=== PATIENT | female | born 1940 | race Caucasian/White ===

== ENCOUNTER 2020-01-15 13:30 | Inpatient (IN) | payer MEDICARE, OTHER ==
[~2020-01-15] VITALS: Ht 154.9 cm; Wt 59.1 kg
[~2020-01-15 13:30] MED LIST: SIMV20TA18 PO
--- NOTE | 2020-01-15 14:19 | PHYS DOC ---
Past Medical History Past Medical History: Arthritis, High Cholesterol, Other Additional Past Medical Histor: BOWEL OBSTRUCTION X 3 Past Surgical History: Cholecystectomy, Hysterectomy, Knee Replacement, Other Additional Past Surgical Histo: D&C'S,BOWEL RESECTION X3 Smoking Status: Current Every Day Smoker Alcohol Use: Occasionally Drug Use: None General Adult EDM: Chief Complaint: OTHER COMPLAINTS HPI: HPI: Patient is a 79 year old female who presents with her with a chief complaint of left upper and lower extremity numbness that lasted about 15 minutes. Patient states that she was driving to the grocery store when her left upper extremity and lower extremity became numb. Patient states that the symptoms started around 12:45 PM and resolved around 1 PM. Patient denies headache, chest pain, shortness of breath, fever, chills, nausea, vomiting. Patient states that currently she does not have any symptoms. Patient denies being on blood thinners. Review of Systems: Review of Systems: Constitutional: Denies fever or chills. [] Eyes: Denies change in visual acuity. [] HENT: Denies nasal congestion or sore throat. [] Respiratory: Denies cough or shortness of breath. [] Cardiovascular: Denies chest pain or edema. [] GI: Denies abdominal pain, nausea, vomiting, bloody stools or diarrhea. [] : Denies dysuria. [] Neurologic: Complains of numbness in her left upper and lower extremities Heart Score: Risk Factors: Risk Factors: DM, Current or recent (<one month) smoker, HTN, HLP, family history of CAD, obesity. Risk Scores: Score 0 - 3: 2.5% MACE over next 6 weeks - Discharge Home Score 4 - 6: 20.3% MACE over next 6 weeks - Admit for Clinical Observation Score 7 - 10: 72.7% MACE over next 6 weeks - Early Invasive Strategies Allergies: Allergies: Allergies Coded Allergies Type Severity Reaction Last Updated Verified Sulfa (Sulfonamide Antibiotics) Allergy Intermediate 03/06/15 No alendronate sodium Allergy Intermediate UNKNOWN 01/15/20 Yes aspirin Allergy Intermediate 03/06/15 No codeine Allergy Intermediate 03/06/15 No meperidine Allergy Intermediate 03/06/15 No morphine Allergy Intermediate 03/06/15 No penicillin Allergy Intermediate 03/06/15 No Physical Exam: PE: Constitutional: Well developed, well nourished, no acute distress, non-toxic appearance. [] HENT: Normocephalic, atraumatic, hearing aids in both ears Eyes: EOMI Neck: Normal range of motion, Supple Cardiovascular:Heart rate regular rhythm Lungs & Thorax: Bilateral breath sounds clear to auscultation [] Abdomen: Bowel sounds normal, soft, no tenderness Extremities: No tenderness, ROM intact Neurologic: Alert and oriented X 3 Current Patient Data: Labs: Laboratory Tests Test 01/15/20 13:45 Glucose (Fingerstick) 81 mg/dL (70-99) Vital Signs: Vital Signs Date Time Temp Pulse Resp B/P (MAP) Pulse Ox O2 Delivery O2 Flow Rate FiO2 01/15/20 13:45 99.0 95 18 144/66 (92) 98 Room Air 99.0 EKG: EKG: EKG interpretation: 14: 28 on 01/15/2020 HR: 87 Sinus rhythm Regular intervals Normal axis Nonspecific ST changes No STEMI Radiology/Procedures: Radiology/Procedures: [] Impression: CT HEAD IMPRESSION: No acute intracranial findings CXR IMPRESSION: 1. New right upper lobe nodular opacity. CT of the chest with contrast is recommended if the diagnosis remains unclear. Course & Med Decision Making: Course & Med Decision Making Pertinent Labs and Imaging studies reviewed. (See chart for details) Ordered labs, UA, chest x-ray, EKG, troponin, CT head Patient's initial presentation NIH score was 0. CT does not show any acute disease. Chest x-ray does not show any acute disease. Labs are within normal limits. EKG does not show any acute changes. Discussed results and plan of care with patient and family. Patient will be admitted for TIA and further work-up. Discussed case with Dr. Sorenson who accepts admission. Shweta Disclaimer: Shweta Disclaimer: This electronic medical record was generated, in whole or in part, using a voice recognition dictation system. Departure Departure Impression: Primary Impression: TIA (transient ischemic attack) Disposition: 09 ADMITTED INPATIENT Admitting Physician: ALMA Condition: STABLE Referrals: UNKNOWN PCP NAME (PCP) Justicifation of Admission Dx: Justifications for Admission: Justification of Admission Dx: Yes Comments: MENDOZA PITTS DO Jan 15, 2020 14:19
[2020-01-15 14:24] LABS: BASO % 1 % (0-3); EOS # 0.3 x10^3/uL (0.0-0.7); EOS % 3 % (0-3); HEMOGLOBIN 13.8 g/dL (12.0-15.5); LYMPH # 2.2 x10^3/uL (1.0-4.8); LYMPH % 26 % (24-48); MEAN CORPUSCULAR HEMOGLOBIN 33 pg (25-35); MEAN CORPUSCULAR HGB CONC 34 g/dL (31-37); MEAN CORPUSCULAR VOLUME 97 fL (79-100); MONO # 0.8 x10^3/uL (0.0-1.1); MONO % 9 % (0-9); NEUT # 5.3 x10^3/uL (1.8-7.7); NEUT % 62 % (31-73); PLATELET COUNT 202 x10^3/uL (140-400); RED BLOOD COUNT 4.24 x10^6/uL (3.50-5.40); RED CELL DISTRIBUTION WIDTH 13.9 % (11.5-14.5); WHITE BLOOD COUNT 8.6 x10^3/uL (4.0-11.0)
[2020-01-15 14:26] LABS: BILIRUBIN,URINE NEGATIVE (NEG); CLARITY,URINE CLEAR; COLOR,URINE YELLOW; NITRITE,URINE NEGATIVE (NEG); PROTEIN,URINE NEGATIVE (NEG-TRACE); UROBILINOGEN,URINE 0.2 mg/dL (0.2 mg/dL)
[2020-01-15 14:33] LABS: SQUAMOUS EPITHELIAL CELL,UR FEW /LPF
[2020-01-15 14:34] LABS: BACTERIA,URINE 0 /HPF (0-FEW); RBC,URINE RARE /HPF (0-2); WBC,URINE RARE /HPF (0-4)
[2020-01-15 14:34] LABS: CALCIUM 8.5 mg/dL (8.5-10.1); CREATININE 0.8 mg/dL (0.6-1.0); GFR 69.6; POTASSIUM 4.3 mmol/L (3.5-5.1)
--- NOTE | 2020-01-15 14:38 | RAD ---
CT HEAD INDICATION: Reason: LEFT ARM AND LEG NUMBNESS TODAY / Spl. Instructions: / History: COMPARISON: None Available. Exposure: One or more of the following individualized dose reduction techniques were utilized for this examination: 1. Automated exposure control 2. Adjustment of the mA and/or kV according to patient size 3. Use of iterative reconstruction technique TECHNIQUE: 5 mm contiguous axial images were obtained from the skull base to the vertex in both bone and soft tissue algorithm. FINDINGS: No abnormal attenuation within the brain parenchyma. No evidence of acute intracranial hemorrhage. No extra-axial fluid collections. No mass effect or midline shift. Ventricular size is appropriate. Basal cisterns are patent. No fractures identified.Lee-white differentiation is preserved.Globes and orbits are within normal limits. Mild opacification of the bilateral mastoid air cells. IMPRESSION: No acute intracranial findings Electronically signed by: Trey Nuñez MD (01/15/2020 2:35 PM) [id number]
--- NOTE | 2020-01-15 14:39 | RAD ---
EXAM: CHEST ONE VIEW. HISTORY: Cough. COMPARISON: 01/23/2007. FINDINGS: A frontal view of the chest is obtained. Ill-defined nodular opacity projecting over the right posterior fifth rib measures 13 mm. There is no pneumothorax or pleural effusion. The heart is not enlarged. There are atherosclerotic calcifications of the aorta. Calcified lymph nodes likely reflect old granulomatous disease. IMPRESSION: 1. New right upper lobe nodular opacity. CT of the chest with contrast is recommended if the diagnosis remains unclear. Electronically signed by: Amari Gilbert MD (01/15/2020 2:36 PM) [facility]
[2020-01-15 14:40] LABS: ALBUMIN 3.7 g/dL (3.4-5.0); ALBUMIN/GLOBULIN RATIO 1.1 (1.0-1.7); MAGNESIUM 1.8 mg/dL (1.8-2.4); TOTAL BILIRUBIN 0.5 mg/dL (0.2-1.0); TOTAL PROTEIN 7.1 g/dL (6.4-8.2)
--- NOTE | 2020-01-15 14:55 | PDOC1 ---
History and Physical Date of Admission Date of Admission DATE: 01/15/20 TIME: 14:55 Identification/Chief Complaint Chief Complaint seen in er with acute tia symptoms ,79 year old female who presents with her with a chief complaint of left upper and lower extremity numbness that lasted about 15 minutes. states that she was driving to the grocery store when her left upper extremity and lower extremity became numb. Patient states that the symptoms started around 12:45 PM and resolved around 1 PM. Patient denies headache, chest pain, shortness of breath, fever, chills, nausea, vomiting. Past Medical History Past Medical History Past Medical History Past Medical History Past Medical History: Arthritis, High Cholesterol, Other Additional Past Medical Histor: BOWEL OBSTRUCTION X 3 Past Surgical History: Cholecystectomy, Hysterectomy, Knee Replacement, Other Additional Past Surgical Histo: D&C'S,BOWEL RESECTION X3 Smoking Status: Current Every Day Smoker Alcohol Use: Occasionally Drug Use: None FHX COPD Musculoskeletal: Osteoarthritis ENT: Other (hearing loss) Family History Family History: Hypertension Social History Smoke: <1 pack per day ALCOHOL: occassional Drugs: None Current Medications Current Medications Active Scripts Active Reported Simvastatin 20 Mg Tablet 1 Tab PO QHS Allergies Allergies: Coded Allergies: Sulfa (Sulfonamide Antibiotics) (Unverified Allergy, Intermediate, 03/06/15) alendronate sodium (Verified Allergy, Intermediate, UNKNOWN, 01/15/20) codeine (Unverified Allergy, Intermediate, 03/06/15) meperidine (Unverified Allergy, Intermediate, 03/06/15) morphine (Unverified Allergy, Intermediate, 03/06/15) penicillin (Unverified Allergy, Intermediate, 03/06/15) aspirin (Verified Adverse Reaction, Intermediate, STOMACH UPSET, 01/16/20) ROS Review of System Review of Systems: Review of Systems: Constitutional: Denies fever or chills. [] Eyes: Denies change in visual acuity. [] HENT: Denies nasal congestion or sore throat. [] Respiratory: Denies cough or shortness of breath. [] Cardiovascular: Denies chest pain or edema. [] GI: Denies abdominal pain, nausea, vomiting, bloody stools or diarrhea. [] : Denies dysuria. [] Neurologic: Complains of numbness in her left upper and lower extremities 14 PT ROS OTHERWISE NEG General: YES: Fatigue PSYCHOLOGICAL ROS: No: Anxiety, Behavioral Disorder, Concentration difficultie, Decreased libido, Depression, Disorientation, Hallucinations, Hostility, Irritablity, Memory difficulties, Mood Swings, Obsessive thoughts, Physical abuse, Sexual abuse, Sleep disturbances, Suicidal ideation, Other Hematological and Lymphatic: No: Bleeding Problems, Blood Clots, Blood Transfusions, Brusing, Night Sweats, Pallor, Swollen Lymph Nodes, Other ENDOCRINE: No: Breast Changes, Galactorrhea, Hair Pattern Changes, Hot Flashes, Malaise/lethargy, Mood Swings, Palpitations, Polydipsia/polyuria, Skin Changes, Temperature Intolerance, Unexpected Weight Changes, Other Musculoskeletal: Yes Joint Stiffness Neurological: Yes Numbness/Tingling Skin: No Dry Skin, No Eczema, No Hair Changes, No Lumps, No Mole Changes, No Mottling, No Nail Changes, No Pruritus, No Rash, No Skin Lesion Changes, No Other, No Acne Vitals Vitals Vital Signs Date Time Temp Pulse Resp B/P (MAP) Pulse Ox O2 Delivery O2 Flow Rate FiO2 01/15/20 13:45 99.0 95 18 144/66 (92) 98 Room Air 99.0 Labs Labs Laboratory Tests Test 01/15/20 13:45 01/15/20 14:00 01/15/20 14:05 Glucose (Fingerstick) 81 mg/dL (70-99) White Blood Count 8.6 x10^3/uL (4.0-11.0) Red Blood Count 4.24 x10^6/uL (3.50-5.40) Hemoglobin 13.8 g/dL (12.0-15.5) Hematocrit 41.0 % (36.0-47.0) Mean Corpuscular Volume 97 fL (79-100) Mean Corpuscular Hemoglobin 33 pg (25-35) Mean Corpuscular Hemoglobin Concent 34 g/dL (31-37) Red Cell Distribution Width 13.9 % (11.5-14.5) Platelet Count 202 x10^3/uL (140-400) Neutrophils (%) (Auto) 62 % (31-73) Lymphocytes (%) (Auto) 26 % (24-48) Monocytes (%) (Auto) 9 % (0-9) Eosinophils (%) (Auto) 3 % (0-3) Basophils (%) (Auto) 1 % (0-3) Neutrophils # (Auto) 5.3 x10^3/uL (1.8-7.7) Lymphocytes # (Auto) 2.2 x10^3/uL (1.0-4.8) Monocytes # (Auto) 0.8 x10^3/uL (0.0-1.1) Eosinophils # (Auto) 0.3 x10^3/uL (0.0-0.7) Basophils # (Auto) 0.0 x10^3/uL (0.0-0.2) Sodium Level 141 mmol/L (136-145) Potassium Level 4.3 mmol/L (3.5-5.1) Chloride Level 105 mmol/L (98-107) Carbon Dioxide Level 28 mmol/L (21-32) Anion Gap 8 (6-14) Blood Urea Nitrogen 20 mg/dL (7-20) Creatinine 0.8 mg/dL (0.6-1.0) Estimated GFR (Cockcroft-Gault) 69.6 BUN/Creatinine Ratio 25 (6-20) Glucose Level 88 mg/dL (70-99) Lactic Acid Level 1.4 mmol/L (0.4-2.0) Calcium Level 8.5 mg/dL (8.5-10.1) Magnesium Level 1.8 mg/dL (1.8-2.4) Total Bilirubin 0.5 mg/dL (0.2-1.0) Aspartate Amino Transf (AST/SGOT) 22 U/L (15-37) Alanine Aminotransferase (ALT/SGPT) 29 U/L (14-59) Alkaline Phosphatase 132 U/L (46-116) Troponin I Quantitative < 0.017 ng/mL (0.000-0.055) Total Protein 7.1 g/dL (6.4-8.2) Albumin 3.7 g/dL (3.4-5.0) Albumin/Globulin Ratio 1.1 (1.0-1.7) Urine Collection Type Void Urine Color Yellow Urine Clarity Clear Urine pH 6.0 (<5.0-8.0) Urine Specific [place] 1.015 (1.000-1.030) Urine Protein Negative mg/dL (NEG-TRACE) Urine Glucose (UA) Negative mg/dL (NEG) Urine Ketones (Stick) Negative mg/dL (NEG) Urine Blood Negative (NEG) Urine Nitrite Negative (NEG) Urine Bilirubin Negative (NEG) Urine Urobilinogen Dipstick 0.2 mg/dL (0.2 mg/dL) Urine Leukocyte Esterase Negative (NEG) Urine RBC Rare /HPF (0-2) Urine WBC Rare /HPF (0-4) Urine Squamous Epithelial Cells Few /LPF Urine Bacteria 0 /HPF (0-FEW) Urine Mucus Slight /LPF Laboratory Tests Test 01/15/20 13:45 01/15/20 14:00 01/15/20 14:05 Glucose (Fingerstick) 81 mg/dL (70-99) White Blood Count 8.6 x10^3/uL (4.0-11.0) Red Blood Count 4.24 x10^6/uL (3.50-5.40) Hemoglobin 13.8 g/dL (12.0-15.5) Hematocrit 41.0 % (36.0-47.0) Mean Corpuscular Volume 97 fL (79-100) Mean Corpuscular Hemoglobin 33 pg (25-35) Mean Corpuscular Hemoglobin Concent 34 g/dL (31-37) Red Cell Distribution Width 13.9 % (11.5-14.5) Platelet Count 202 x10^3/uL (140-400) Neutrophils (%) (Auto) 62 % (31-73) Lymphocytes (%) (Auto) 26 % (24-48) Monocytes (%) (Auto) 9 % (0-9) Eosinophils (%) (Auto) 3 % (0-3) Basophils (%) (Auto) 1 % (0-3) Neutrophils # (Auto) 5.3 x10^3/uL (1.8-7.7) Lymphocytes # (Auto) 2.2 x10^3/uL (1.0-4.8) Monocytes # (Auto) 0.8 x10^3/uL (0.0-1.1) Eosinophils # (Auto) 0.3 x10^3/uL (0.0-0.7) Basophils # (Auto) 0.0 x10^3/uL (0.0-0.2) Sodium Level 141 mmol/L (136-145) Potassium Level 4.3 mmol/L (3.5-5.1) Chloride Level 105 mmol/L (98-107) Carbon Dioxide Level 28 mmol/L (21-32) Anion Gap 8 (6-14) Blood Urea Nitrogen 20 mg/dL (7-20) Creatinine 0.8 mg/dL (0.6-1.0) Estimated GFR (Cockcroft-Gault) 69.6 BUN/Creatinine Ratio 25 (6-20) Glucose Level 88 mg/dL (70-99) Lactic Acid Level 1.4 mmol/L (0.4-2.0) Calcium Level 8.5 mg/dL (8.5-10.1) Magnesium Level 1.8 mg/dL (1.8-2.4) Total Bilirubin 0.5 mg/dL (0.2-1.0) Aspartate Amino Transf (AST/SGOT) 22 U/L (15-37) Alanine Aminotransferase (ALT/SGPT) 29 U/L (14-59) Alkaline Phosphatase 132 U/L (46-116) Troponin I Quantitative < 0.017 ng/mL (0.000-0.055) Total Protein 7.1 g/dL (6.4-8.2) Albumin 3.7 g/dL (3.4-5.0) Albumin/Globulin Ratio 1.1 (1.0-1.7) Urine Collection Type Void Urine Color Yellow Urine Clarity Clear Urine pH 6.0 (<5.0-8.0) Urine Specific [place] 1.015 (1.000-1.030) Urine Protein Negative mg/dL (NEG-TRACE) Urine Glucose (UA) Negative mg/dL (NEG) Urine Ketones (Stick) Negative mg/dL (NEG) Urine Blood Negative (NEG) Urine Nitrite Negative (NEG) Urine Bilirubin Negative (NEG) Urine Urobilinogen Dipstick 0.2 mg/dL (0.2 mg/dL) Urine Leukocyte Esterase Negative (NEG) Urine RBC Rare /HPF (0-2) Urine WBC Rare /HPF (0-4) Urine Squamous Epithelial Cells Few /LPF Urine Bacteria 0 /HPF (0-FEW) Urine Mucus Slight /LPF Images Images EXAM: CHEST ONE VIEW. HISTORY: Cough. COMPARISON: 01/23/2007. FINDINGS: A frontal view of the chest is obtained. Ill-defined nodular opacity projecting over the right posterior fifth rib measures 13 mm. There is no pneumothorax or pleural effusion. The heart is not enlarged. There are atherosclerotic calcifications of the aorta. Calcified lymph nodes likely reflect old granulomatous disease. IMPRESSION: 1. New right upper lobe nodular opacity. CT of the chest with contrast is recommended if the diagnosis remains unclear. Electronically signed by: Amari Gilbert MD (01/15/2020 2:36 PM) [facility] DICTATED and SIGNED BY: KASEY GILBERT MD DATE: 01/15/[address] HEAD INDICATION: Reason: LEFT ARM AND LEG NUMBNESS TODAY / Spl. Instructions: / History: COMPARISON: None Available. Exposure: One or more of the following individualized dose reduction techniques were utilized for this examination: 1. Automated exposure control 2. Adjustment of the mA and/or kV according to patient size 3. Use of iterative reconstruction technique TECHNIQUE: 5 mm contiguous axial images were obtained from the skull base to the vertex in both bone and soft tissue algorithm. FINDINGS: No abnormal attenuation within the brain parenchyma. No evidence of acute intracranial hemorrhage. No extra-axial fluid collections. No mass effect or midline shift. Ventricular size is appropriate. Basal cisterns are patent. No fractures identified.Lee-white differentiation is preserved.Globes and orbits are within normal limits. Mild opacification of the bilateral mastoid air cells. IMPRESSION: No acute intracranial findings Electronically signed by: Trey Nuñez MD (01/15/2020 2:35 PM) [id number] DICTATED and SIGNED BY: TREY NUÑEZ MD DATE: 01/15/20 1435 VTE Prophylaxis Ordered VTE Prophylaxis Devices: Yes VTE Pharmacological Prophylaxi: Yes Assessment/Plan Assessment/Plan IMPRESSION: 1. ACUTE TIA 2. New right upper lobe nodular opacity. CT of the chest with contrast is recommended if the diagnosis remains unclear. 3. TOBACCO ABUSE DISORDER PLAN ADMIT neurology consult neurochecks q [address] chest with contrast dvt prophylaxis smoking cessation education provided 77 MIN PT EXAM, CHART REVIEW, > 50% OF TIME SPENT WITH EXAM, CHART REVIEW, pt care coordination Justicifation of Admission Dx: Justifications for Admission: Justification of Admission Dx: Yes Comminuty Aquired Pneumonia: Bactermia Sepsis: Hypoxemia Altered Mental Status: Altered Mental Status ROYER MILLER MD Jan 15, 2020 14:55
[2020-01-15] MEDS ORDERED: IV NORMAL SALINE 1000ML BAG 1,000 ML IV SCH (16:34)
[2020-01-15] MEDS ORDERED: LORazepam 0.5 MG TABLET PO PRN ×2 (16:45→19:30)
[2020-01-15] MEDS ORDERED: DOCUSATE SODIUM 100 MG CAPSULE. PO PRN (16:45)
[2020-01-15] MEDS ORDERED: 0.9 % SODIUM CHLORIDE 10 ML DISP.SYRIN. IV PRN ×2 (16:45→19:30)
[2020-01-15] MEDS ORDERED: ONDANSETRON PF 4 MG/2 ML VIAL. IV PRN ×2 (16:45→19:30)
[2020-01-15] MEDS ORDERED: ACETAMINOPHEN 325 MG TABLET. PO PRN ×2 (16:45→19:30)
[2020-01-15] MEDS ORDERED: IOHEXOL 300 MG/ML 100ML VIAL. IV ONE ×2 (16:45)
[2020-01-15] MEDS ORDERED: MAG HYDROX/ALUMINUM HYD/SIMETH 30 ML ORAL.SUSP PO PRN ×2 (16:45→19:30)
[2020-01-15] MEDS ORDERED: ALBUTEROL SULFATE 2.5 MG/3 ML NEBU. NEB PRN ×2 (16:45→21:28)
[2020-01-15] MEDS ORDERED: guaiFENesin ORAL 200 MG/10 ML LIQUID. PO PRN ×2 (16:45→19:30)
[2020-01-15] MEDS ORDERED: CONTRAST GIVEN. MC PRN (16:45)
[2020-01-15] MEDS ORDERED: ENOXAPARIN 40 MG/0.4 ML SYRINGE. SQ SCH ×2 (17:00→19:30)
--- NOTE | 2020-01-15 17:13 | RAD ---
Exam: CT of chest with contrast INDICATION: Lung nodule TECHNIQUE: Sequential axial images through the chest obtained following the administration of 75 mL of Omni 300 IV contrast. Sagittal and coronal reformatted images were reconstructed from the axial data and reviewed. Comparisons: Chest x-ray same day FINDINGS: Visualized portions of the thyroid are unremarkable. No enlarged mediastinal lymph nodes are identified. Heart size is normal. No pericardial effusion. Thoracic aorta has a normal course and caliber. Pulmonary artery is not enlarged. Airways are patent. No consolidation or pneumothorax. There is emphysematous change noted probably at the upper lungs. Spiculated opacity at the right upper lobe series 6 image 69. 3 mm nodule right upper lobe series 6 image 117. Subtle areas of peripheral groundglass opacity noted in the left upper and middle lobe. No pleural effusion or thickening. Visualized upper abdomen is unremarkable. No suspicious osseous lesions or acute fractures. IMPRESSION: 1. Subtle areas of peripheral groundglass opacity noted predominantly within the left upper lobe, may be infectious or inflammatory in etiology. Correlate for atypical infectious process. 2. Somewhat spiculated opacity in the right upper lobe likely correlating to abnormality seen on radiograph. This is nonspecific in etiology and may relate to a focal area of scarring. Short-term follow-up imaging in 1-3 months is recommended to determine stability. Exposure: One or more of the following in the visualized dose reduction techniques were utilized for this examination: 1. Automated exposure control 2. Adjustment of the MA and/or KV according to patient size 3. Use of iterative of reconstructive technique Electronically signed by: Clara Maxwell MD (01/15/2020 5:10 PM) [id number]
[2020-01-15 17:30] VITALS: BP 160/80
--- NOTE | 2020-01-15 18:00 | NUR ---
Patient Crissy Lord, 79/F admitted due to TIA, arrived at the unit at 1730 via bed. She's awake, alert, oriented x4, denies pain, VSS. She's placed on comfortable position, call light placed within reach.
[2020-01-15 19:20] VITALS: BP 154/84
[2020-01-15] MEDS ORDERED: SODIUM PHOSPHATES 19/7GM 133 ML ENEMA. PR PRN (19:30)
[2020-01-15] MEDS: IV NORMAL SALINE 1000ML BAG 1,000 ML IV SCH (19:41)
[2020-01-15] MEDS ORDERED: DICL75TA PO (19:46)
[2020-01-15] MEDS ORDERED: ATOR20TA58 PO (19:46)
[2020-01-15] MEDS ORDERED: IPRATRPIUM/ALBUTEROL 0.5/2.5MG 3 ML NEBU. NEB SCH (20:00)
[2020-01-15] MEDS ORDERED: SIMVASTATIN 20 MG TABLET PO SCH (21:00)
[2020-01-15] MEDS ORDERED: IPRATRPIUM/ALBUTEROL 0.5/2.5MG 3 ML NEBU. NEB PRN (21:15)
[2020-01-15] MEDS ORDERED: LORA10TA3 PO (21:49)
[2020-01-15] MEDS ORDERED: DIME50TA10 PO (21:49)
[2020-01-15 22:50] VITALS: BP 133/65
[2020-01-16 02:54] VITALS: BP 138/75
[2020-01-16 07:21] VITALS: BP 139/72
[2020-01-16] MEDS ORDERED: ACETAMINOPHEN 650 MG SUPP.RECT. PR PRN (08:45)
[2020-01-16] MEDS ORDERED: ACETAMINOPHEN 325 MG TABLET. PO PRN (08:45)
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
[2020-01-16] MEDS ORDERED: CLOPIDOGREL BISULFATE 75 MG TABLET PO SCH (09:00)
[2020-01-16] MEDS ORDERED: ASPIRIN ENTERIC COATED 81 MG TABLET.DR. PO SCH (09:00)
--- NOTE | 2020-01-16 09:56 | EKG ---
[facility] [address] [place] [address] Test Date: 2020-01-15 Test Time: 14:26:11 Pat Name: JONATHAN DELGADO Department: Room: 658 1 Gender: F [employer]: : 1940 Requested By: MENDOZA TIDWELL Order Number: [id number] Reading MD: Pranav Fry Measurements Intervals [place] Rate: 87 P: 26 VA: 150 QRS: 29 QRSD: 74 T: 17 QT: 366 QTc: 441 Interpretive Statements SINUS RHYTHM NORMAL ECG RI6.02 No previous ECG available for comparison Electronically Signed On 02-12-2020 12:35:00 CDT by Pranav Fry
[2020-01-16] MEDS: IV NORMAL SALINE 1000ML BAG 1,000 ML IV SCH (10:10)
--- NOTE | 2020-01-16 11:13 | PDOC2 ---
CARLA BUCK WINDERMAN 01/16/20 1113: CARDIAC CONSULT DATE OF CONSULT Date of Consult DATE: 01/16/20 TIME: 11:04 REASON FOR CONSULT Reason for Consult: ?CAD REFERRING PHYSICIAN Referring Physician: Gregorio SOURCE Source: Chart review, Patient HISTORY OF PRESENT ILLNESS HISTORY OF PRESENT ILLNESS This is a pleasant 79 yo female admitted for complains of numbness to left side of her body. This lasted about 15 minutes. Nohx of CVa in the past and no hx of CAD or any arrhythmia. Reports no exertional CP nor STIVEN. No recent stress test. No recent fever or chills and no falls or injury. No other focal neuro sym ptoms. Consult is for CAD which she does not have a hx but suspected for TIA. PAST MEDICAL HISTORY Cardiovascular: Hyperlipidemia Musculoskeletal: Osteoarthritis ENT: Allergic Rhinitis PAST SURGICAL HISTORY Past Surgical History: Other (right ulna ORIF) FAMILY HISTORY Family History: Coronary Artery Disease SOCIAL HISTORY Smoke: <1 pack per day ALCOHOL: none Drugs: None Lives: with Family CURRENT MEDICATIONS CURRENT MEDICATIONS Current Medications Medications (Trade) Dose Ordered Sig/Nilsa Route PRN Reason Start Time Stop Time Status Last Admin Dose Admin Iohexol (Omnipaque 300 Mg/ml) 75 ml 1X ONCE IV 01/15/20 16:45 01/15/20 16:46 DC 01/15/20 17:08 Sodium Chloride 1,000 ml @ 75 mls/hr [id number] IV 01/15/20 16:34 01/15/20 19:36 DC 01/15/20 18:08 Enoxaparin Sodium (Lovenox 40mg Syringe) 40 mg Q24H SQ 01/15/20 17:00 01/15/20 18:42 Simvastatin (Zocor) 20 mg QHS PO 01/15/20 21:00 01/16/20 10:12 DC 01/15/20 20:31 Sodium Chloride 1,000 ml @ 60 mls/hr [id number] IV 01/15/20 19:30 01/16/20 10:10 Clopidogrel Bisulfate (Plavix) 75 mg [id number] PO 01/16/20 09:00 01/16/20 10:04 ALLERGIES ALLERGIES: Coded Allergies: Sulfa (Sulfonamide Antibiotics) (Unverified Allergy, Intermediate, 5) alendronate sodium (Verified Allergy, Intermediate, UNKNOWN, 01/15/20) codeine (Unverified Allergy, Intermediate, 03/06/15) meperidine (Unverified Allergy, Intermediate, 03/06/15) morphine (Unverified Allergy, Intermediate, 03/06/15) penicillin (Unverified Allergy, Intermediate, 03/06/15) aspirin (Verified Adverse Reaction, Intermediate, STOMACH UPSET, 01/16/20) ROS Review of System 14 point ROS evaluated with pertinent positives noted per HPI PHYSICAL EXAM General: Alert, Oriented X3, Cooperative, No acute distress HEENT: Atraumatic, Mucous membr. moist/pink Lungs: Clear to auscultation, Normal air movement Heart: Regular rate (SR), Normal S1, Normal S2, Other (2/6 systolic murmur to LLS border; bilateral carotid bruit) Abdomen: Soft, No tenderness Extremities: No cyanosis, No edema Skin: No breakdown, No significant lesion Neuro: Normal speech, Sensation intact Psych/Mental Status: Mood NL MUSCULOSKELETAL: Osteoarthritic changes both hands VITALS/I&O VITALS/I&O: Vital Signs Date Time Temp Pulse Resp B/P (MAP) Pulse Ox O2 Delivery O2 Flow Rate FiO2 01/16/20 07:21 98.4 89 14 139/72 (94) 96 Room Air 98.4 I & O 01/15/20 01/15/20 01/16/20 15:00 23:00 07:00 Intake Total 250 ml 250 ml Balance 250 ml 250 ml LABS Lab: Laboratory Tests Test 01/15/20 13:45 01/15/20 14:00 01/15/20 14:05 Glucose (Fingerstick) 81 mg/dL (70-99) White Blood Count 8.6 x10^3/uL (4.0-11.0) Red Blood Count 4.24 x10^6/uL (3.50-5.40) Hemoglobin 13.8 g/dL (12.0-15.5) Hematocrit 41.0 % (36.0-47.0) Mean Corpuscular Volume 97 fL (79-100) Mean Corpuscular Hemoglobin 33 pg (25-35) Mean Corpuscular Hemoglobin Concent 34 g/dL (31-37) Red Cell Distribution Width 13.9 % (11.5-14.5) Platelet Count 202 x10^3/uL (140-400) Neutrophils (%) (Auto) 62 % (31-73) Lymphocytes (%) (Auto) 26 % (24-48) Monocytes (%) (Auto) 9 % (0-9) Eosinophils (%) (Auto) 3 % (0-3) Basophils (%) (Auto) 1 % (0-3) Neutrophils # (Auto) 5.3 x10^3/uL (1.8-7.7) Lymphocytes # (Auto) 2.2 x10^3/uL (1.0-4.8) Monocytes # (Auto) 0.8 x10^3/uL (0.0-1.1) Eosinophils # (Auto) 0.3 x10^3/uL (0.0-0.7) Basophils # (Auto) 0.0 x10^3/uL (0.0-0.2) Sodium Level 141 mmol/L (136-145) Potassium Level 4.3 mmol/L (3.5-5.1) Chloride Level 105 mmol/L (98-107) Carbon Dioxide Level 28 mmol/L (21-32) Anion Gap 8 (6-14) Blood Urea Nitrogen 20 mg/dL (7-20) Creatinine 0.8 mg/dL (0.6-1.0) Estimated GFR (Cockcroft-Gault) 69.6 BUN/Creatinine Ratio 25 (6-20) H Glucose Level 88 mg/dL (70-99) Lactic Acid Level 1.4 mmol/L (0.4-2.0) Calcium Level 8.5 mg/dL (8.5-10.1) Magnesium Level 1.8 mg/dL (1.8-2.4) Total Bilirubin 0.5 mg/dL (0.2-1.0) Aspartate Amino Transferase (AST) 22 U/L (15-37) Alanine Aminotransferase (ALT) 29 U/L (14-59) Alkaline Phosphatase 132 U/L (46-116) H Troponin I Quantitative < 0.017 ng/mL (0.000-0.055) Total Protein 7.1 g/dL (6.4-8.2) Albumin 3.7 g/dL (3.4-5.0) Albumin/Globulin Ratio 1.1 (1.0-1.7) Urine Collection Type Void Urine Color Yellow Urine Clarity Clear Urine pH 6.0 (<5.0-8.0) Urine Specific [place] 1.015 (1.000-1.030) Urine Protein Negative mg/dL (NEG-TRACE) Urine Glucose (UA) Negative mg/dL (NEG) Urine Ketones (Stick) Negative mg/dL (NEG) Urine Blood Negative (NEG) Urine Nitrite Negative (NEG) Urine Bilirubin Negative (NEG) Urine Urobilinogen Dipstick 0.2 mg/dL (0.2 mg/dL) Urine Leukocyte Esterase Negative (NEG) Urine RBC Rare /HPF (0-2) Urine WBC Rare /HPF (0-4) Urine Squamous Epithelial Cells Few /LPF Urine Bacteria 0 /HPF (0-FEW) Urine Mucus Slight /LPF Laboratory Tests 01/15/20 14:00 Laboratory Tests 01/15/20 14:00 ASSESSMENT/PLAN ASSESSMENT/PLAN 1. Left side numbness: possible TIA, neurology following 2. HTN: no home regimen 3. HLP: on statin 4. Tobaccoism 5. Arrhythmia: possible PAT Recommendations 1. Neuro w/u ongoing 2. Smoking cessation 3. Lipids and TTE today. 4. Now on plavix and statin 5. Arrange for MCOT and follow up in office. ROSA POZO MD 01/16/20 1811: CARDIAC CONSULT ASSESSMENT/PLAN ASSESSMENT/PLAN Patient seen and examined Left side numbness. Possible TIA being worked up by neurology. Hypertension. Checking records. Echocardiogram today. Hyperlipidemia. Continue statins and check lab. Arrhythmias. Possible PAT. On Plavix as noted above. Will arrange for outpatient monitoring and follow-up in the office. Thank you for allowing us to participate in the care of your patient. CARLA BUCK APRN Jan 16, 2020 11:13 ROSA POZO MD Jan 16, 2020 18:11
--- NOTE | 2020-01-16 11:41 | CARD ---
MR#: [id number] Date of Study: 01/16/2020 Ordering Physician: CHELA BALLARD, Referring Physician: CHELA BALLARD, Tech: Larisa Argueta RDCS APPROVED REPORT EXAM: Two-dimensional and M-mode echocardiogram with Doppler and color Doppler. Other Information Quality : Good INDICATION CVA/TIA 2D DIMENSIONS RVDd2.1 (2.9-3.5cm)Left Atrium(2D)2.6 (1.6-4.0cm) IVSd1.3 (0.7-1.1cm)Aortic Root(2D)2.5 (2.0-3.7cm) LVDd2.9 (3.9-5.9cm)LVOT Diameter1.9 (1.8-2.4cm) PWd1.0 (0.7-1.1cm)LVDs1.6 (2.5-4.0cm) FS (%) 30.0 %SV23.8 ml Aortic Valve AoV Peak Eleazar.133.0cm/sAoV VTI25.8cm AO Peak GR.7.1mmHgLVOT Peak Eleazar.110.0cm/s AO Mean GR.4mmHgAVA (VMAX)2.37cm2 TREASURE (VTI)2.50cm2 Mitral Valve MV E Hbjvqgpb128.2cm/sMV DECEL [id number] MV A Tedyqegi772.1cm/sE/A Ratio0.7 Pulmonary Vein S1 Jxrwwxhj97.5cm/sD2 Yhpktoas00.8cm/s LEFT VENTRICLE The left ventricle is normal size. There is mild asymmetric septal hypertrophy. The left ventricular systolic function is normal and the ejection fraction is within normal range. The Ejection Fraction i s 55-60%. There is normal LV segmental wall motion. Transmitral Doppler flow pattern is Grade I-abnor mal relaxation pattern. RIGHT VENTRICLE The right ventricle is normal size. The right ventricular systolic function is normal. ATRIA The left atrium size is normal. The right atrium size is normal. The interatrial septum is intact wit h no evidence for an atrial septal defect or patent foramen ovale as noted on 2-D or Doppler imaging. AORTIC VALVE The aortic valve is not well visualized but appears to be functioning normally by Doppler interrogati on. Doppler and Color Flow revealed no significant aortic regurgitation. There is no significant aort ic valvular stenosis. MITRAL VALVE The mitral valve is calcified but opens well. There is no evidence of mitral valve prolapse. There is no mitral valve stenosis. Doppler and Color-flow revealed mild mitral regurgitation. TRICUSPID VALVE The tricuspid valve is normal in structure and function. Doppler and Color Flow revealed no tricuspid valve regurgitation noted. There is no tricuspid valve stenosis. PULMONIC VALVE The pulmonic valve is not well visualized. Doppler and Color Flow revealed no pulmonic valvular regur gitation. There is no pulmonic valvular stenosis. GREAT VESSELS The aortic root is normal in size. The ascending aorta is normal in size. The IVC is normal in size a nd collapses >50% with inspiration. PERICARDIAL EFFUSION There is no evidence of significant pericardial effusion. Critical Notification Critical Value: No <Conclusion> The left ventricle is normal size. The left ventricular systolic function is normal and the ejection fraction is within normal range. The Ejection Fraction is 55-60%. There is mild asymmetric septal hypertrophy. There is normal LV segmental wall motion. The interatrial septum is intact with no evidence for an atrial septal defect or patent foramen ovale as noted on 2-D or Doppler imaging. Doppler and Color Flow revealed no significant aortic regurgitation. There is no significant aortic valvular stenosis. Doppler and Color-flow revealed mild mitral regurgitation. Doppler and Color Flow revealed no tricuspid valve regurgitation noted. Signed by : Pranav Fry MD Electronically Approved : 01/16/2020 11:40:31
--- NOTE | 2020-01-16 11:51 | PDOC ---
[employer] PROGRESS NOTE Chief Complaint Chief Complaint TIA versus stroke New incidental finding of a spiculated mass on chest x-ray and CAT scan (she is does smoke I am concerned she could have cancer) Hyperlipidemia Hypertension Tobacco abuse Hard of hearing Past Medical History: Arthritis, High Cholesterol, Other Additional Past Medical Histor: BOWEL OBSTRUCTION X 3 Past Surgical History: Cholecystectomy, Hysterectomy, Knee Replacement, Other Additional Past Surgical Histo: D&C'S,BOWEL RESECTION X3 Smoking Status: Current Every Day Smoker History of Present Illness History of Present Illness 01/16/2020 Patient seen and examined I discussed the case at length with her daughter Alannah Discussed with RN Chart reviewed discussed with Vitals/I&O Vitals/I&O: Vital Signs Date Time Temp Pulse Resp B/P (MAP) Pulse Ox O2 Delivery O2 Flow Rate FiO2 01/16/20 07:21 98.4 89 14 139/72 (94) 96 Room Air 98.4 l I & O 01/15/20 01/15/20 01/16/20 15:00 23:00 07:00 Intake Total 250 ml 250 ml Balance 250 ml 250 ml Physical Exam General: Alert, Oriented X3 Heart: Regular rate, Normal S1 Lungs: Wheezing Abdomen: Normal bowel sounds Extremities: No clubbing, No cyanosis Skin: No rashes, No breakdown Labs Labs: Laboratory Tests Test 01/15/20 13:45 01/15/20 14:00 01/15/20 14:05 Glucose (Fingerstick) 81 mg/dL (70-99) White Blood Count 8.6 x10^3/uL (4.0-11.0) Red Blood Count 4.24 x10^6/uL (3.50-5.40) Hemoglobin 13.8 g/dL (12.0-15.5) Hematocrit 41.0 % (36.0-47.0) Mean Corpuscular Volume 97 fL (79-100) Mean Corpuscular Hemoglobin 33 pg (25-35) Mean Corpuscular Hemoglobin Concent 34 g/dL (31-37) Red Cell Distribution Width 13.9 % (11.5-14.5) Platelet Count 202 x10^3/uL (140-400) Neutrophils (%) (Auto) 62 % (31-73) Lymphocytes (%) (Auto) 26 % (24-48) Monocytes (%) (Auto) 9 % (0-9) Eosinophils (%) (Auto) 3 % (0-3) Basophils (%) (Auto) 1 % (0-3) Neutrophils # (Auto) 5.3 x10^3/uL (1.8-7.7) Lymphocytes # (Auto) 2.2 x10^3/uL (1.0-4.8) Monocytes # (Auto) 0.8 x10^3/uL (0.0-1.1) Eosinophils # (Auto) 0.3 x10^3/uL (0.0-0.7) Basophils # (Auto) 0.0 x10^3/uL (0.0-0.2) Sodium Level 141 mmol/L (136-145) Potassium Level 4.3 mmol/L (3.5-5.1) Chloride Level 105 mmol/L (98-107) Carbon Dioxide Level 28 mmol/L (21-32) Anion Gap 8 (6-14) Blood Urea Nitrogen 20 mg/dL (7-20) Creatinine 0.8 mg/dL (0.6-1.0) Estimated GFR (Cockcroft-Gault) 69.6 BUN/Creatinine Ratio 25 (6-20) Glucose Level 88 mg/dL (70-99) Lactic Acid Level 1.4 mmol/L (0.4-2.0) Calcium Level 8.5 mg/dL (8.5-10.1) Magnesium Level 1.8 mg/dL (1.8-2.4) Total Bilirubin 0.5 mg/dL (0.2-1.0) Aspartate Amino Transf (AST/SGOT) 22 U/L (15-37) Alanine Aminotransferase (ALT/SGPT) 29 U/L (14-59) Alkaline Phosphatase 132 U/L (46-116) Troponin I Quantitative < 0.017 ng/mL (0.000-0.055) Total Protein 7.1 g/dL (6.4-8.2) Albumin 3.7 g/dL (3.4-5.0) Albumin/Globulin Ratio 1.1 (1.0-1.7) Urine Collection Type Void Urine Color Yellow Urine Clarity Clear Urine pH 6.0 (<5.0-8.0) Urine Specific [place] 1.015 (1.000-1.030) Urine Protein Negative mg/dL (NEG-TRACE) Urine Glucose (UA) Negative mg/dL (NEG) Urine Ketones (Stick) Negative mg/dL (NEG) Urine Blood Negative (NEG) Urine Nitrite Negative (NEG) Urine Bilirubin Negative (NEG) Urine Urobilinogen Dipstick 0.2 mg/dL (0.2 mg/dL) Urine Leukocyte Esterase Negative (NEG) Urine RBC Rare /HPF (0-2) Urine WBC Rare /HPF (0-4) Urine Squamous Epithelial Cells Few /LPF Urine Bacteria 0 /HPF (0-FEW) Urine Mucus Slight /LPF Assessment and Plan Assessmemt and Plan TIA versus stroke New incidental finding of a spiculated mass on chest x-ray and CAT scan (she is does smoke I am concerned she could have cancer) Hyperlipidemia Hypertension Tobacco abuse Hard of hearing Past Medical History: Arthritis, High Cholesterol, Other Additional Past Medical Histor: BOWEL OBSTRUCTION X 3 Past Surgical History: Cholecystectomy, Hysterectomy, Knee Replacement, Other Additional Past Surgical Histo: D&C'S,BOWEL RESECTION X3 Smoking Status: Current Every Day Smoker Plan I have consulted cardiology pulmonary neurology and oncology Neurochecks q 4 hrs Home meds DVT prophylaxis Full code Appreciate subspecialist input Long-term prognosis guarded Comment Review of Relevant I have reviewed the following items zaida (where applicable) has been applied. Medications: Current Medications Medications (Trade) Dose Ordered Sig/Nilsa Route PRN Reason Start Time Stop Time Status Last Admin Dose Admin Iohexol (Omnipaque 300 Mg/ml) 75 ml 1X ONCE IV 01/15/20 16:45 01/15/20 16:46 DC 01/15/20 17:08 Sodium Chloride 1,000 ml @ 75 mls/hr [id number] IV 01/15/20 16:34 01/15/20 19:36 DC 01/15/20 18:08 Enoxaparin Sodium (Lovenox 40mg Syringe) 40 mg Q24H SQ 01/15/20 17:00 01/15/20 18:42 Simvastatin (Zocor) 20 mg QHS PO 01/15/20 21:00 01/16/20 10:12 DC 01/15/20 20:31 Sodium Chloride 1,000 ml @ 60 mls/hr [id number] IV 01/15/20 19:30 01/16/20 10:10 Clopidogrel Bisulfate (Plavix) 75 mg [id number] PO 01/16/20 09:00 01/16/20 10:04 Justicifation of Admission Dx: Justifications for Admission: Justification of Admission Dx: Yes JES PELLETIER III DO Jan 16, 2020 11:50
--- NOTE | 2020-01-16 12:02 | RAD ---
Clinical Indications: Left arm numbness, TIA. Exam : Carotid Duplex with Grayscale Ultrasound and Spectral and Color Doppler Analysis: PQRS Compliance Statement - Stenosis calculations for CT, MR and conventional angiography are based upon measurement of the distal ICA diameter in accordance with the NASCET methodology. Stenosis calculations for carotid ultrasound studies are derived from validated velocity criteria which are known to correlate with the NASCET methodology. Comparison study: None available. Findings: The common, internal and external carotid arteries were examined by grayscale, color and spectral Doppler ultrasound. Moderate atherosclerotic calcifications identified in the bilateral carotid bulbs and the proximal internal carotid arteries. Flow in both vertebral arteries was antegrade and normal. The following are the velocities and ratios in the carotid arteries on both sides: RIGHT ICA PV: 96cm/sec RIGHT CCA PV: 121cm/sec RIGHT ICA ED: 25cm/sec RIGHT IC/CCPV: 0.9 RIGHT VERTEBRAL: antegrade flow RIGHT % STENOSIS: Less than 50 percent LEFT ICA PV: 112cm/sec LEFT CCA PV: 109cm/sec LEFT ICA ED: 24cm/sec LEFT IC/CCPV: 1.0 LEFT VERTEBRAL: antegrade flow LEFT % STENOSIS: Less than 50 percent <50% ICA Stenosis: PSV < 125cm/s (EDV < 40cm/s; SVR < 2.0) 50-69% ICA Stenosis: PSV < 125-229cm/s (EDV 40-99cm/s; SVR 2.0-3.9) >70% ICA Stenosis: PSV > 230cm/s (EDV >100cm/s; SVR >4.0) Impression: No evidence of hemodynamically significant stenosis. Electronically signed by: Trey Nuñez MD (01/16/2020 11:59 AM) [id number]
--- NOTE | 2020-01-16 14:04 | RAD ---
BRAIN W/O CONTRAST Date: 01/16/2020 8:41 AM Indication: Reason: left sided body sx, TIA / Spl. Instructions: / History: Comparison: CT 01/15/2020. Technique: Multiplanar multisequence MRI of the brain was performed without intravenous contrast using the standard protocol. Findings: No acute infarct. No acute or chronic hemorrhage. The ventricles are normal in size and configuration without hydrocephalus. Mild scattered FLAIR hyperintensities in the subcortical and periventricular deep white matter, a nonspecific finding, most commonly seen with chronic small vessel ischemic disease. Mild generalized cerebral volume loss. The scalp and calvarium are normal. The pituitary and sella are normal. No Chiari malformation. Moderate incompletely characterized degenerative spondylosis of the visualized upper cervical spine. The visualized orbits and globes are normal. Mild paranasal sinus mucosal thickening. Bilateral mastoid fluid. Normal flow voids within the vertebral, basilar, and internal carotid arteries indicating patency. IMPRESSION: 1. No acute infarct, hemorrhage, mass, or hydrocephalus. 2. Mild chronic small vessel ischemic disease and generalized cerebral volume loss. Electronically signed by: Chava Sierra MD (01/16/2020 2:01 PM) [id number]
--- NOTE | 2020-01-16 14:07 | PDOC2 ---
Consult: ASSESSMENT: 79 year-old with long history of smoking now with spiculated RUL nodule concerning for malignancy. The patient declined consult possibly out of fear about having malignancy. PLAN: 1. It would be important to obtain short-term follow-up CT, plan for 6-8 weeks as outpatient. 2. Follow-up at [facility] 2-[address] Thank you for the opportunity to see your patient. Please call with any questions. Gerardo Dickens MD [phone]. BENNIE DICKENS MD Jan 16, 2020 14:07
--- NOTE | 2020-01-16 15:13 | PDOC ---
PULMONARY PROGRESS NOTES Vitals Vital Signs Date Time Temp Pulse Resp B/P (MAP) Pulse Ox O2 Delivery O2 Flow Rate FiO2 01/16/20 07:21 98.4 89 14 139/72 (94) 96 Room Air 98.4 Lungs: Wheezing Labs Laboratory Tests Test 01/15/20 13:45 01/15/20 14:00 01/15/20 14:05 Glucose (Fingerstick) 81 mg/dL (70-99) White Blood Count 8.6 x10^3/uL (4.0-11.0) Red Blood Count 4.24 x10^6/uL (3.50-5.40) Hemoglobin 13.8 g/dL (12.0-15.5) Hematocrit 41.0 % (36.0-47.0) Mean Corpuscular Volume 97 fL (79-100) Mean Corpuscular Hemoglobin 33 pg (25-35) Mean Corpuscular Hemoglobin Concent 34 g/dL (31-37) Red Cell Distribution Width 13.9 % (11.5-14.5) Platelet Count 202 x10^3/uL (140-400) Neutrophils (%) (Auto) 62 % (31-73) Lymphocytes (%) (Auto) 26 % (24-48) Monocytes (%) (Auto) 9 % (0-9) Eosinophils (%) (Auto) 3 % (0-3) Basophils (%) (Auto) 1 % (0-3) Neutrophils # (Auto) 5.3 x10^3/uL (1.8-7.7) Lymphocytes # (Auto) 2.2 x10^3/uL (1.0-4.8) Monocytes # (Auto) 0.8 x10^3/uL (0.0-1.1) Eosinophils # (Auto) 0.3 x10^3/uL (0.0-0.7) Basophils # (Auto) 0.0 x10^3/uL (0.0-0.2) Sodium Level 141 mmol/L (136-145) Potassium Level 4.3 mmol/L (3.5-5.1) Chloride Level 105 mmol/L (98-107) Carbon Dioxide Level 28 mmol/L (21-32) Anion Gap 8 (6-14) Blood Urea Nitrogen 20 mg/dL (7-20) Creatinine 0.8 mg/dL (0.6-1.0) Estimated GFR (Cockcroft-Gault) 69.6 BUN/Creatinine Ratio 25 (6-20) Glucose Level 88 mg/dL (70-99) Lactic Acid Level 1.4 mmol/L (0.4-2.0) Calcium Level 8.5 mg/dL (8.5-10.1) Magnesium Level 1.8 mg/dL (1.8-2.4) Total Bilirubin 0.5 mg/dL (0.2-1.0) Aspartate Amino Transf (AST/SGOT) 22 U/L (15-37) Alanine Aminotransferase (ALT/SGPT) 29 U/L (14-59) Alkaline Phosphatase 132 U/L (46-116) Troponin I Quantitative < 0.017 ng/mL (0.000-0.055) Total Protein 7.1 g/dL (6.4-8.2) Albumin 3.7 g/dL (3.4-5.0) Albumin/Globulin Ratio 1.1 (1.0-1.7) Thyroid Stimulating Hormone (TSH) 1.681 uIU/mL (0.358-3.74) Urine Collection Type Void Urine Color Yellow Urine Clarity Clear Urine pH 6.0 (<5.0-8.0) Urine Specific [place] 1.015 (1.000-1.030) Urine Protein Negative mg/dL (NEG-TRACE) Urine Glucose (UA) Negative mg/dL (NEG) Urine Ketones (Stick) Negative mg/dL (NEG) Urine Blood Negative (NEG) Urine Nitrite Negative (NEG) Urine Bilirubin Negative (NEG) Urine Urobilinogen Dipstick 0.2 mg/dL (0.2 mg/dL) Urine Leukocyte Esterase Negative (NEG) Urine RBC Rare /HPF (0-2) Urine WBC Rare /HPF (0-4) Urine Squamous Epithelial Cells Few /LPF Urine Bacteria 0 /HPF (0-FEW) Urine Mucus Slight /LPF Medications Active Scripts Medications Dose Route/Sig Max Daily Dose Days Date Category Dimenhydrinate 50 Mg Tablet 50 Mg PO PRN PRN 01/15/20 Reported Loratadine 10 Mg Tablet 1 Tab PO DAILY 01/15/20 Reported Atorvastatin Calcium 20 Mg Tablet 1 Tab PO DAILY 01/15/20 Reported Diclofenac Sodium 75 Mg Tablet.dr 1 Tab PO BID 01/15/20 Reported Impression . Full note dictated, recommend repeat CT chest in 2 months Patient given my business card YONG DORMAN MD Jan 16, 2020 15:13
[2020-01-16 15:18] VITALS: BP 147/72
--- NOTE | 2020-01-16 15:46 | NUR ---
SW following. Spoke with RN and reviewed chart. Pt from home with spouse. Neurology consult per possible TIA. PT/OT has seen this pt and the recommendation is home. Pt on room air. RN stated no SW needs at this time. SW to follow as needed.
[2020-01-16] MEDS ORDERED: CLOP75TA PO ×2 (16:32→16:36)
--- NOTE | 2020-01-16 17:16 | NUR ---
Discharge Note: JONATHAN DELGADO [address] Discharge instructions and discharge home medications reviewed with Patient and a copy given. All questions have been answered and understanding verbalized. The following instructions and handouts were given: patient visit report, medication information, education. Discontinued lines and drains: peripheral IV, tip intact. Patient discharged to home with self care via private vehicle. Patient left unit awake, in stable condition, with all personal beloningings. [facility].
--- NOTE | 2020-01-16 18:29 | DS ---
DATE OF DISCHARGE: 01/16/2020 ADMISSION DIAGNOSIS: Transient ischemic attack. DISCHARGE DIAGNOSES: 1. Resolving transient ischemic attack. 2. Incidental finding of a spiculated pulmonary mass. 3. Hypertension. 4. Hyperlipidemia. CONSULTS: Oncology, Pulmonary Medicine, Cardiology, and Neurology. PROCEDURES: None. HOSPITAL COURSE: The patient is a pleasant elderly female, who presented with transient ischemic attack symptoms. By the next morning, her symptoms have resolved. Interestingly, on the chest x-ray, she had a small abnormality. We did a CAT scan of the chest. It was described as a small spiculated mass. She does indeed smoke; so I went ahead and consulted Pulmonary Medicine and Oncology. The patient does not really want to get real aggressive with the treatment. She has basically refused Oncology consultation at this time. Dr. Alfaro is okay with her going home. We are going to repeat the CAT scan of her chest in 8 weeks and see if this mass is growing. DISPOSITION: Home. ACTIVITY: As tolerated. DIET: Low sodium. MEDICATIONS: We are going to continue her home medications and we added in Plavix 75 mg p.o. every day. TOTAL TIME: 31 minutes. KAITLYNNL Evert PELLETIER DO DR: BARBER/zachery JOB#: [id number] / [id number]
[2020-01-16] MEDS ORDERED: ATORVASTATIN CALCIUM 20 MG TABLET PO SCH (21:00)
--- NOTE | 2020-01-16 21:07 | CONS ---
DATE OF CONSULTATION: 01/16/2020 ATTENDING PHYSICIAN: Zander Sorenson MD CONSULTING PHYSICIAN: Yong Alfaro MD REASON FOR CONSULTATION: The patient seen in pulmonary consultation at the request of Dr. Perkins for abnormal CT chest. HISTORY OF PRESENT ILLNESS: The patient presented to the Emergency Room after having some left sided numbness. She was evaluated in the Emergency Room. Part of the workup included CT chest. CT chest revealed several findings including emphysema, some ground-glass opacities and a right upper lobe infiltrate spiculated in nature. I was asked to see her in consultation for further evaluation and management. The patient does not carry a diagnosis of COPD. She uses an inhaler every once in a while. No frequent acute exacerbations of COPD. She denies any hemoptysis. No fever, chills or night sweats. No significant weight loss. She has not had a previous CT of the chest. PAST MEDICAL HISTORY: Remarkable for hyperlipidemia. PAST SURGICAL HISTORY: No major surgeries. ALLERGIES: SULFA. SHE IS ALSO ALLERGIC TO ASPIRIN, CODEINE, MEPERIDINE, MORPHINE, PENICILLIN, AND ALENDRONATE MEDICATIONS: List was reviewed. FAMILY HISTORY: Sister with a small cell lung cancer. REVIEW OF SYSTEMS: CONSTITUTIONAL: No fever or chills. EYES: No change in visual acuity. HENT: No nasal congestion or sore throat. PULMONARY: As indicated above. CARDIOVASCULAR: No chest pain. No pressure. GASTROINTESTINAL: No nausea, vomiting or diarrhea. GENITOURINARY: No dysuria or frequency. MUSCULOSKELETAL: No localized muscle aches or joint pains. SKIN: No new skin rashes. NEUROLOGIC: No headaches, diplopia or blurred vision. PHYSICAL EXAMINATION: GENERAL: The patient appeared to be younger than stated age. VITAL SIGNS: Stable. O2 saturation was greater than 92%. HEENT: Eyes, the sclerae were nonicteric. NECK: Jugular venous distention was not elevated. No lymphadenopathy. CHEST: Full expansion. LUNGS: Crackles in the bases. No wheezes. CARDIOVASCULAR: Regular rate and rhythm with S1, S2, no S3. ABDOMEN: Soft, nontender, nondistended. EXTREMITIES: No clubbing, cyanosis or edema. NEUROLOGICAL: The patient was awake, alert, following commands. A detailed neuro exam was not performed. LABORATORY DATA: Reviewed. White count was normal. Hemoglobin and hematocrit were normal. RADIOLOGICAL DATA: CT as indicated above. IMPRESSION: 1. Abnormal CT chest revealing several findings, right upper lobe spiculated mass, emphysema and some ground-glass opacities. 2. Underlying chronic obstructive pulmonary disease. 3. Tobacco dependent. 4. Left-sided transient ischemic attack. 5. Hypertensive encephalopathy. 6. Hyperlipidemia. 7. Tobacco dependence. PLAN: 1. Recommend repeat scan of the chest in 8 weeks. 2. Follow up in my office. The patient given my office business card, I informed the daughter who was at the bedside to call my office for followup. 3. The patient instructed on the importance of discontinuing tobacco use. 4. No need for antibiotics or steroids at this time. 5. Call my office if her symptoms worsen, I will see her sooner than 2 months. YONG ALFARO MD DR: YASMIN/zachery JOB#: [id number] / [id number]
== END 2020-01-16 16:20 | disposition home or self-care (01) | DRG 69 ==
LOC: ER 13:30 → ED HOLD 14:55 → 6 SOUTH 17:19
PROVIDERS: ADMIT Family Medicine; ATTEND Family Medicine
DX: G45.9 Transient cerebral ischemic attack, unspecified (principal); I67.4 Hypertensive encephalopathy; E78.00 Pure hypercholesterolemia, unspecified; E78.5 Hyperlipidemia, unspecified; F17.210 Nicotine dependence, cigarettes, uncomplicated; H91.90 Unspecified hearing loss, unspecified ear; I10 Essential (primary) hypertension; I25.10 Atherosclerotic heart disease of native coronary artery without angina pectoris; I70.0 Atherosclerosis of aorta; J43.9 Emphysema, unspecified; Z80.1 Family history of malignant neoplasm of trachea, bronchus and lung; Z82.49 Family history of ischemic heart disease and other diseases of the circulatory system; Z82.5 Family history of asthma and other chronic lower respiratory diseases; Z86.73 Personal history of transient ischemic attack (TIA), and cerebral infarction without residual deficits; Z90.710 Acquired absence of both cervix and uterus; Z96.659 Presence of unspecified artificial knee joint; M19.90 Unspecified osteoarthritis, unspecified site; Z88.0 Allergy status to penicillin; Z88.2 Allergy status to sulfonamides; Z88.8 Allergy status to other drugs, medicaments and biological substances; Z79.899 Other long term (current) drug therapy; Z71.6 Tobacco abuse counseling
CPT/HCPCS: 36415; 70450; 70551; 71045; 71260; 80053; 81001; 82962; 83605; 83735; 84443; 84484; 85025; 87040; 93005; 93306; 93880; 99285; J1650; J7030; Q9967; 92610-GN; G0378

== ENCOUNTER → 2020-02-27 | Outpatient (CLI) | payer MEDICARE, OTHER ==
[~2020-02-27] MED LIST changes: +ATOR20TA58 PO; +CLOP75TA PO; +DICL75TA PO; +DIME50TA10 PO; +IOHEXOL 300 MG/ML 100ML VIAL. IV ONE; +LORA10TA3 PO
--- NOTE | 2020-02-27 14:19 | RAD ---
CT of the chest with contrast 02/27/2020 INDICATION: Follow-up pulmonary nodules. COMPARISON STUDY: CT of the chest with contrast January 15, 2020. TECHNIQUE: Multidetector CT imaging of the chest was performed following the administration of IV contrast. FINDINGS: Heart size is normal. Coronary calcification noted. No pericardial effusion is seen. No pathologically enlarged mediastinal lymph nodes are identified. Scattered subcentimeter mediastinal lymph nodes are noted. Severe emphysematous changes are seen throughout the lungs. Bullous changes in the bilateral lung apices is similar to comparison exam. No pneumothorax or pleural effusion is seen. Irregular right upper lobe opacity is seen, immediately abutting the aforementioned bullous changes. The size and configuration are unchanged in the interim. 3 mm nodule in the more inferior subpleural right upper lobe is also unchanged. There is dilatation of the inferior most visualized abdominal aorta up to 3.[address] angiography of the abdomen and pelvis recommended. Upper abdomen otherwise demonstrates no definitively acute abnormality. IMPRESSION: 1. Stable nodular opacities in the right upper lobe as described. Recommend CT imaging to ensure minimum two-year stability, and consideration of lung cancer screening annually based on patient's risk factors/smoking history. 2. Partially visualized abdominal aortic aneurysm. CT angiography of the abdomen and pelvis recommended CT DOSING PQRS STATEMENT: One or more of the following individualized dose reduction techniques were utilized for this examination: 1. Automated exposure control 2. Adjustment of the mA and/or kV according to patient size 3. Use of iterative reconstruction technique Electronically signed by: Pratik Maya MD (02/27/2020 2:16 PM) [id number]
== END | disposition home or self-care (01) ==
LOC: CT 12:26
PROVIDERS: ATTEND Internal Medicine Hematology & Oncology
DX: I71.4 Abdominal aortic aneurysm, without rupture (principal); I25.10 Atherosclerotic heart disease of native coronary artery without angina pectoris; R91.1 Solitary pulmonary nodule; R93.89 Abnormal findings on diagnostic imaging of other specified body structures
CPT/HCPCS: 71260; Q9967

== ENCOUNTER → 2020-04-18 | Outpatient (CLI) | payer MEDICARE, OTHER ==
[~2020-04-18] MED LIST changes: -IOHEXOL 300 MG/ML 100ML VIAL. IV ONE
--- NOTE | 2020-04-18 13:21 | KCIC ---
INDICATION: Reason: AAA / Spl. Instructions: / History: COMPARISON: CT chest [place] [address] FINDINGS: Focused ultrasound images are obtained of the abdominal aorta including grayscale and spectral Doppler. Calcific atherosclerosis is identified. Measurements of the abdominal aorta from proximal to distal are in millimeters: Proximal 23 x 22 Mid 24 x 22 Distal 35 x 34 A portion of the distal abdominal aorta is not well seen secondary to overlying bowel gas obscuring. Common iliac arteries are not well seen. IMPRESSION: * Calcific atherosclerosis with aneurysmal dilatation of the distal abdominal aorta. Electronically signed by: Kevin Sheppard MD (04/18/2020 1:18 PM) [id number]
== END | disposition home or self-care (01) ==
LOC: KCIC US 12:24
PROVIDERS: ATTEND Internal Medicine
DX: I71.4 Abdominal aortic aneurysm, without rupture (principal); I70.0 Atherosclerosis of aorta
CPT/HCPCS: 76770